=== PATIENT | female | born 1970 | race Caucasian/White ===

== ENCOUNTER → 2016-09-29 | Outpatient (CLI) | payer BC ==
--- NOTE | 2016-09-30 20:47 | XR ---
EXAMINATION TYPE: XR foot complete RT DATE OF EXAM: 09/29/2016 11:14 AM COMPARISON: NONE HISTORY: TECHNIQUE: Three views are submitted. FINDINGS: Mild arthropathy first MTP joint. No erosive changes. Tiny calcaneal spur. IMPRESSION: 1. No acute fracture or dislocation. If symptoms persist, follow-up exam in 7 to 10 days could be ob tained.
== END | disposition home or self-care (01) ==
LOC: RADXRYALE 10:21
PROVIDERS: ATTEND Internal Medicine
DX: M25.511 Pain in right shoulder (principal)